=== PATIENT | female | born 1990 | race Caucasian/White ===

== ENCOUNTER 2021-12-04 09:43 | Emergency (ER) | payer OTHER, SELFPAY ==
--- NOTE | ~2021-12-04 | XR_ITS ---
EXAMINATION: XR shoulder RT min 2V EXAM DATE: 12/04/2021 11:20 INDICATION: Fell on ice, landed on right shoulder. TECHNIQUE: The following right shoulder projections obtained: frontal projection with internal rotati on, frontal projection with external rotation, Grashey, and scapular Y view (4+ views). There is no prior study for comparison. FINDINGS: There is a right humeral head anterior inferior dislocation. Could the commonly associated Hill-Sachs impaction deformity of the humeral head, although this is not directly visualized. No othe r acute fracture suspected. IMPRESSION: Right humeral anterior inferior dislocation. Reviewed, dictated and finalized at location B. T BAND SEPARATOR
--- NOTE | ~2021-12-04 | XR_ITS ---
EXAMINATION: XR shoulder RT min 2V EXAM DATE: 12/04/2021 13:58 INDICATION: Post-reduction film TECHNIQUE: 3 projections of the right shoulder. Comparison is made to prior examination from earlier same date. FINDINGS: The right humerus has been reduced, is in expected position. Suspicion of Hill-Sachs impac tion deformity. No other acute fracture is identified. IMPRESSION: 1. Right shoulder reduction. 2. Probable Hill-Sachs impaction fracture. Reviewed, dictated and finalized at location B. ITE POLISHER MACHINE
[2021-12-04 09:45] VITALS: BP 145/94; PULSE 75; RESP 14; TEMP 36.7; O2SAT 99
--- NOTE | 2021-12-04 11:50 | ED.GENADULT ---
HPI - General Adult General Chief complaint: Extremity Injury, Upper Stated complaint: fall/shoulder injury Time Seen by Provider: 12/04/21 09:50 Source: patient Mode of arrival: ambulatory Limitations: no limitations History of Present Illness HPI narrative: Patient presents for evaluation of right shoulder pain. She indicates she was walking into work at [employer] when she slipped on the ice and landed on her right arm. She had difficulty getting up off the ground. She contacted her mother, who brought her here for further evaluation. She did not hit her head nor have loss of consciousness. She is not on blood thinners. No vomiting since episode. She reports 8 out of 10 pain in the right shoulder, worse with movement. She reports sensitivity in her right thumb but denies any paresthesias per se. No radicular component to her pain. She has not taken any medication for her pain. No additional complaints or concersn. Related Data Allergies Allergy/AdvReac Type Severity Reaction Status Date / Time ibuprofen Allergy Unknown swelling Unverified 01/24/15 18:54 Review of Systems Review of Systems: CONSTITUTIONAL: Denies fever, chills, or sweats. EYES: Denies visual changes, redness, or discharge. ENT: Denies rhinorrhea, congestion, sore throat, or otalgia. CARDIOVASCULAR: Denies chest pain, palpitations, or edema. RESPIRATORY: Denies cough or dyspnea. GASTROINTESTINAL: Denies abdominal pain, nausea, vomiting, or diarrhea. GENITOURINARY: Denies dysuria or hematuria. SKIN: Denies rash or itching. MUSCULOSKELETAL: Reports right shoulder pain. Denies back pain or myalgia. NEUROLOGIC: Denies headache, numbness, dizziness, or weakness. PSYCHIATRIC: Denies anxiety or depression. [facility] Past Medical History Medical History (Updated 12/04/21 @ 14:43 by PARMJIT Grider, MIKEY) Obesity Shoulder dislocation Surgical History Surgical History No pertinent past surgical history Family History Family History Mother No pertinent past medical history Social History Social History Smoking status: Never smoker Second hand tobacco smoke exposure: No Alcohol intake: never Substance use: never Living arrangements: with family Additional occupation/education comments: Works at [employer] concerns: No Exam Narrative: GENERAL: Well-appearing, well-nourished, and in no acute distress. HEAD: Normocephalic, atraumatic. EYES: PERRLA and EOMI. ENT: Nares clear, no rhinorrhea or epistaxis. Mucous membranes moist. Oropharynx without tonsillar hypertrophy exudate or other lesions. Bilateral TMs pearly machado nonbulging NECK: Supple. No adenopathy or masses. No carotid bruits or JVD CHEST: Clear to auscultation. No respiratory distress. No wheezes rales or rhonchi HEART: Regular rate and rhythm. No murmur heard. Normal peripheral pulses. ABDOMEN: Soft, nontender, nondistended, normal active bowel sounds. EXTREMITIES: Tenderness in right shoulder without crepitus or deformity. No swelling. Decreased ROM of right shoulder. 4/5 hand chinese herbalist strength right and 5/5 hand chinese herbalist strength left SKIN: Warm, dry, no rash. NEURO: No focal deficits. Alert and oriented x3. PSYCH: Normal mood and affect. Course Course Emergency Course: This is a 30-year-old female that presented with complaints of pain in the right shoulder after falling on ice just prior to arrival. X-ray showed dislocation. Patient was given Dilaudid and Valium and reduction was completed successfully. Dr Bolton as supervising MD. Patient was placed in sling and shoulder immobilizer. Pt was instructed to follow up outpatient for further evaluation and treatment and return for worsening symptoms. Pt in agreement with plan of care. Vital Signs Vital signs: Vital Signs Temperature
[2021-12-04] MEDS: diazePAM INJ (*CRX) 10 MG/2 ML SYRINGE 5 MG IV PUSH (13:01)
[2021-12-04] MEDS: ONDANSETRON INJ 4 MG/2 ML VIAL IV PUSH (13:06)
[2021-12-04] MEDS: SODIUM CHLORIDE 0.9% IV 1,000 ML 999 ML IV CONT (13:06)
[2021-12-04] MEDS: HYDROmorphone HCL INJ (*CRX) 1 MG/ML SYR IV PUSH (13:09)
[2021-12-04 15:00] VITALS: BP 128/91; PULSE 77; RESP 16; O2SAT 99
== END 2021-12-04 15:32 | disposition home or self-care (01) ==
PROVIDERS: Emergency Provider Nurse Practitioner; PCP Family Medicine
DX: S43.014A Anterior dislocation of right humerus, initial encounter (principal); S43.034A Inferior dislocation of right humerus, initial encounter; W00.0XXA Fall on same level due to ice and snow, initial encounter; E66.9 Obesity, unspecified; Z68.43 Body mass index [BMI] 50.0-59.9, adult
CPT/HCPCS: 23650; 73030; 96374; 96375; 99285; A4565; J1170; J2405; J3360; J7030

== ENCOUNTER 2023-02-23 17:03 | Emergency (ER) | payer OTHER, SELFPAY ==
--- NOTE | ~2023-02-23 | XR_ITS ---
EXAMINATION: XR chest 2V DATE: 02/23/2023 17:45 INDICATION: Cough and chest pain TECHNIQUE: PA and lateral views of the chest are obtained. COMPARISON: None available FINDINGS: There are airspace opacities of the left lung base. No pleural effusion or pneumothorax. Th e cardiomediastinal silhouette is normal. The visualized bones and soft tissues are unremarkable. IMPRESSION: 1. Left basilar airspace opacity, likely pneumonia. Reviewed, dictated and finalized at location F.
[2023-02-23 17:17] VITALS: BP 135/89; PULSE 92; RESP 18; TEMP 36.4; O2SAT 100
--- NOTE | 2023-02-23 17:32 | ECG_ITS ---
Measurements Intervals [place] Rate: 86 P: 18 MI: 166 QRS: 37 QRSD: 84 T: 19 QT: 349 QTc: 419 Interpretive Statements SINUS RHYTHM BASELINE ARTIFACT- I, III NORMAL ECG NO PREVIOUS ECG AVAILABLE FOR COMPARISON Electronically Signed On 02-24-2023 6:32:39 CDT by Scott Womack D.O.
--- NOTE | 2023-02-23 17:40 | ED.GENADULT ---
HPI - General Adult General Chief complaint: Chest Pain Stated complaint: . Time Seen by Provider: 02/23/23 17:07 Source: patient Mode of arrival: ambulatory Limitations: no limitations History of Present Illness HPI narrative: 32-year-old female presents to [facility] with complaints of 10 day history of cough, congestion, shortness of breath and wheezing. Patient reports that she then started yesterday with midsternal chest pains, rates the pain as a 3/10 and describes as a constant ache like pain. Patient reports that nothing makes the pain better or worse. Patient reports that she has a history of chest tightness and heaviness when her allergies act up. Patient is a nonsmoker. Patient has no sick contacts. Patient denies recent travel. Patient denies family history of cardiac events. Patient reports that she takes Zyrtec and Singulair daily for seasonal allergies. Patient also has been taking [id number] NyQuil and DayQuil with minimal relief. Patient reports that she was evaluated by her primary care provider 5 days ago and he started her on singular and ordered routine blood work at that time Onset (ago): day(s) (10) Quality: aching Pain Consistency: constant Relieving factors: none Exacerbating factors: none Related Data Home Medications Medication Instructions Recorded Confirmed norethindrone-e.estradiol-iron 1 tablet PO DAILY 12/13/21 02/23/23 [] Allergies Allergy/AdvReac Type Severity Reaction Status Date / Time diphenhydramine Allergy Severe Swelling Verified 02/23/23 17:35 [From Benadryl] ibuprofen Allergy Severe swelling Verified 02/23/23 17:35 Review of Systems Constitutional: Constitutional: Denies chills, Denies fatigue, Denies fever(s) and Denies weakness ENT: Denies dizziness, Denies epistaxis, Reports nasal congestion and Denies sore throat Cardiovascular: Cardiovascular: Reports chest pain, Denies rapid heart rate, Denies radiating jaw, neck or arm pain and Denies slow heart rate Respiratory: Respiratory: Reports chest congestion, Reports cough, Reports dyspnea and Reports wheezing Neurologic: Denies vertigo, Denies dizziness, Denies syncope and Denies headache(s) Allergic/Immunologic: Allergic/Immunologic: Denies lip swelling, Denies throat swelling, Denies tongue swelling and Denies wheezing PMF Past Medical History Medical History Chest tightness Chronic headaches Congestion of nasal sinus Coughing Hoarseness Obesity Psoriasis Shoulder dislocation Wears glasses Wheezing Surgical History Surgical History No pertinent past surgical history Family History Family History Mother No problems noted. Other Arthritis Breast cancer Cerebrovascular accident Diabetes mellitus Social History Social History Smoking status: Never smoker Second hand tobacco smoke exposure: No Alcohol intake: current Substance use: never Substance use type: does not use Living arrangements: with family Occupation/Education: occupation Additional occupation/education comments: [employer] Gender identity (if verbalized by the patient): Female Spiritual care concerns: No Comments At time of signature, I agree with nursing past medical, surgical, social and family history. There is no relevant family history pertinent to the presenting complaint. Exam Const: General: healthy appearing Nutritional Appearance: well nourished and obese Orientation/consciousness: patient oriented x3 Limitations: no limitations HENMT: Head: normal to inspection Ears: external ears normal and TM's normal bilaterally Face/Nose/Sinus: Normal external nose present and Normal nares present Mouth: Yes Normal oral and palatal mucosa present and Y
== END 2023-02-23 18:17 | disposition home or self-care (01) ==
PROVIDERS: Emergency Provider Nurse Practitioner Family; PCP Family Medicine
DX: J18.1 Lobar pneumonia, unspecified organism (principal); L40.9 Psoriasis, unspecified; E66.9 Obesity, unspecified; Z68.43 Body mass index [BMI] 50.0-59.9, adult
CPT/HCPCS: 71046; 93005; 99213; G0463